=== PATIENT | male | born 1995 | race Caucasian/White ===

== ENCOUNTER 2018-06-15 14:01 | Emergency (ER) | payer OTHER ==
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
[2018-06-15 15:50] VITALS: BP 108/74
== END 2018-06-15 15:56 | disposition home or self-care (01) ==
LOC: ER 15:20
DX: S09.90XA Unspecified injury of head, initial encounter (principal); V49.50XA Passenger injured in collision with unspecified motor vehicles in traffic accident, initial encounter
CPT/HCPCS: 99281